=== PATIENT | female | born 1945 | race Caucasian/White ===

== ENCOUNTER → 2016-11-11 | Day surgery (SDC) | payer MEDICARE, BC ==
[~2016-11-11] MED LIST: BUPIVACAINE/EPINEPHRINE 0.25% 50 ML VIAL ONE; CLINDAMYCIN PHOS 600 MG/4 ML VIAL ONE; HYDROCORTISONE SOD SUCCINATE 100 MG VIAL ONE; LACTATED RINGER'S 1000 ML INJ 1,000 ML ONE; MIDAZOLAM HCL 2 MG/2 ML VIAL ONE; ONDANSETRON HCL 4 MG/2 ML VIAL IV PUSH ONE; PROPOFOL 200 MG/20 ML AMP IV ONE; SODIUM CHLORIDE 0.9% INJ 100 ML IV ONE; oxyCODONE/ACETAMINOPHEN 5 MG/325 MG TAB ONE
--- NOTE | 2016-11-11 11:57 | TN ---
cc: ARLEEN JACQUES M.D. DATE OF SURGERY 11/11/2016 PREOPERATIVE DIAGNOSIS Right knee medial meniscus tear and right knee degenerative arthritis. POSTOPERATIVE DIAGNOSES 1. Right knee large complex medial meniscus tear and small lateral meniscus tear. 2. Right knee large loose body intercondylar notch. 3. Chondromalacia Grade III-A trochlear groove, patella, medial femoral condyle, and lateral tibial plateau. 4. Partial rupture ACL 10%. PROCEDURE PERFORMED 1. Right knee arthroscopy with partial medial and lateral meniscectomies. 2. Right knee arthroscopic removal of large loose body through extended incision. 3. Right knee arthroscopy with chondroplasty of the patellofemoral joint, of the medial femoral condyle, and of the lateral tibial plateau. 4. Debridement partial ACL rupture. SURGEON MD Rohan ANESTHESIA General via laryngeal mask augmented by local infiltration. ESTIMATED BLOOD LOSS Blood loss was minimal. FLUID REPLACEMENT 600 cc of crystalloid. DRAINS No drains were utilized. TOURNIQUET TIME 28 minutes at 300 mmHg. IMPLANTS There were no implants utilized. COMPLICATIONS There were no intraoperative complications. COUNTS All counts were correct. INDICATIONS FOR PROCEDURE Mrs. Gillespie is a 71-year-old woman who has been experiencing problems with persistent right knee pain since twisting her knee at home in late August of this year. She has an MRI that revealed evidence of a medial meniscus tear in addition to strain injuries of her anterior cruciate ligament and her medial collateral ligament. She was initially rehabilitated and did have some improvement of her ACL and MCL strain injuries but continued to have symptoms consistent with a medial meniscus tear and as a result was being taken to the operating room for arthroscopy of the knee. She was aware of the risks, benefits, potential complications as well as limitations of the procedure and full written informed consent was obtained. Please note that she was given the option of ongoing tolerance of the discomfort but she found that the symptoms were simply intolerable. She had a good result following a left knee arthroscopy many years ago and is certainly a good candidate for right knee arthroscopy at this time. DESCRIPTION OF PROCEDURE After the patient was properly identified in the holding area, she correctly marked her right knee as the surgical site and was given 600 mg of clindamycin due to her CEPHALOSPORIN ALLERGY. She was then taken to the operating suite where she was placed under general laryngeal mask anesthetic and then had a very well-padded tourniquet applied high on her right thigh. At this time her right leg was prepped with alcohol and Hibiclens and then she was draped in the normal standard fashion including an impervious stocking up to her midcalf. At this time a brief time-out was held confirming that the right leg was the appropriate surgical site. The team was in agreement and case was now begun. After complete exsanguination with an paramjit wrap, the tourniquet was elevated to 300 mmHg. Standard anteromedial and anterolateral joint line portals were established under direct vision. A moderate yellowish effusion was evacuated. Inflow was initiated and the survey of joint was as follows: The suprapatellar pouch showed no evidence of any loose bodies but there was a fair amount of hypertrophic synovial tissue and a quite significant chondromalacia of the trochlear groove, more so than the patella itself. She was primarily Grade III-A without any eburnation present. The patella side had some areas of the intact cartilage that still remained especially on over the medial facet. The patella tracked centrally throughout her range of motion. At this time the medial gutter was explored where no significant synovial tissue was appreciated nor was there any loose bodies. As the medial compartment was now entered, there was a quite significant chondromalacia noted in the medial compartment, mostly on the femoral side. It was primarily Grade III-A on the femur without cavitation. There was not enough chondral tissue to even consider a chondroplasty. There were multiple areas of fragmented cartilage that were seen throughout the joint which were easily aspirated without difficulty. As I began explore the meniscus, there was a complex tear seen on the posterior third of the medial meniscus which was debrided with an oscillating shaver without any problems. She had a near subtotal medial meniscectomy done on the posterior half of the meniscus and the anterior half was in relatively good condition. The chondral surfaces on the weightbearing area of the femur revealed III-A on the femoral side and there was much better sparing of the cartilage surface on the tibial side, Grade II-A or II-B at the worst. The intercondylar notch was now explored and the anterior cruciate ligament was identified. It was had some calcification within it and there was also some evidence of a rupture of a few of the superficial fibers (10%). I went ahead and debrided the areas where the ligament had partially ruptured because early cyclops lesions were forming and the ligament tensioned appropriately with anterior drawer maneuvers. As I explored further anteriorly, there was a large osteochondral loose body 15 mm in diameter, that was somewhat synovialized at the footprint of the ACL. I went ahead and grabbed it with the grasper and removed it. I did have to enlarge the medial incision significantly to get it out. As I explored it on the back table, it was primarily a large fragment of cartilage. The posterior cruciate tensioned appropriately with posterior drawer maneuvers. The lateral compartment was now entered. There was some Grade II-B chondromalacia of the lateral tibial plateau and some gentle chondroplasty was performed to remove the unstable edges and the femoral surface showed almost no disease whatsoever. There were a central tears seen of the lateral meniscus around the leading edge which was debrided with an oscillating shaver. The rest of lateral meniscus was probed and found to be quite stable. At this time the lateral gutter was explored. There was no evidence of any loose bodies or debris. She then had the knee suction aspirated and then reinsufflated with fluid multiple times. I re-explored all compartments once again and found no further pathology. At this time the knee was drained one final time and the portals were closed with 3-0 nylon simple sutures and then 20 cc of 0.25% Marcaine with epinephrine were then infiltrated around the incisions as well as deep to the incision for postop pain relief. She was then dressed with Xeroform, 4x4s, ABDs and was placed in an Paramjit wrap. The tourniquet was let down. She had brisk return of capillary refill. She reestablished palpable distal pulses and she was taken to the recovery room in stable condition. Appropriate postoperative orders have been written. Arleen Jacques MD Electronically Signed Arleen Jacques MD SIS/SSB /11:20 AM /11:36 AM RICKY
== END | disposition home or self-care (01) ==
LOC: ESDC 08:55
PROVIDERS: ATTEND Orthopaedic Surgery Sports Medicine
DX: S83.231A Complex tear of medial meniscus, current injury, right knee, initial encounter (principal); S83.281A Other tear of lateral meniscus, current injury, right knee, initial encounter; M94.261 Chondromalacia, right knee; S83.512A Sprain of anterior cruciate ligament of left knee, initial encounter
CPT/HCPCS: 01400; 29880; J1720; J2250; J2405; J3010; J7120